=== PATIENT | female | born 1940 | race Caucasian/White ===

== ENCOUNTER 2017-11-04 16:00 | Inpatient (IN) | payer MEDICARE, OTHER ==
[~2017-11-04] VITALS: Ht 149.9 cm; Wt 65.5 kg
[2017-11-04] MEDS ORDERED: GABA-586 PO (16:56)
[2017-11-04] MEDS ORDERED: ESTR30CR VG (16:56)
[2017-11-04] MEDS ORDERED: MULT1TAB52 PO (16:56)
[2017-11-04] MEDS ORDERED: OMEP20CA9 PO (16:56)
[2017-11-04] MEDS ORDERED: LISI1TAB5 PO (16:56)
[2017-11-04] MEDS ORDERED: IRON45TA3 PO (16:56)
[2017-11-04] MEDS ORDERED: CRESTOR20 MG PO (16:56)
[2017-11-04] MEDS ORDERED: MAGN30TA PO (16:56)
[2017-11-04] MEDS ORDERED: ONDA8TAB12 PO (16:56)
[2017-11-04] MEDS ORDERED: LEVO50TA PO (16:56)
[2017-11-04] MEDS ORDERED: METO-239 PO (16:57)
[2017-11-04] MEDS ORDERED: FERR325T14 PO (17:01)
[2017-11-04] MEDS ORDERED: MAGN400T3 PO (17:01)
[2017-11-04] MEDS ORDERED: ISOS30TA4 PO (17:01)
[2017-11-04] MEDS ORDERED: ASPI-612 PO (17:01)
[2017-11-04] MEDS: IV NORMAL SALINE 1,000ML 1,000 ML IV SCH (18:19)
[2017-11-04 19:31] VITALS: BP 121/61
--- NOTE | 2017-11-04 19:53 | HP ---
ADMIT DATE: 11/04/2017 HISTORY OF PRESENT ILLNESS: The patient is a 76-year-old female patient who was admitted directly from her primary care physician on account of not feeling well for the past week and dizzy, fatigued. She also complained that she has increased urination. She said that she might have a yeast infection and took some Diflucan she had at home. She denied any pain except her chronic back pain and yesterday, she had an opened house and came home and slept for an hour or 2, which is unlike her and she has had extensive investigation done yesterday and it showed that her urinalysis was basically unremarkable. Her white cell count was noted to be high at 13,000 and she was noted to be dehydrated. Her BUN was 41; however, her creatinine is 1.12. She has not been eating or drinking a lot and apparently continued to take her lisinopril and hydrochlorothiazide that might have contributed to her dehydration. PAST MEDICAL HISTORY: Her past medical history is significant for hypertension, hyperlipidemia, hypothyroidism, osteoarthritis and degenerative disk disease and chronic back pain. PAST SURGICAL HISTORY: Her past surgical history is significant for abdominal hernia repair, carpal tunnel release, bunionectomy of the left side, multiple spinal epidural steroid injections, back surgery x 2, total abdominal hysterectomy, bilateral salpingo-oophorectomy, bilateral cataract extraction, cholecystectomy, spinal nerve stimulator placement twice. She has 2 weight loss surgeries. She has lap band in 2008 that apparently slipped and underwent a gastric sleeve surgery in 2013 and she is now maintaining her weight around 140 pound. ALLERGIES: SHE IS ALLERGIC TO TOPICAL ANTIBIOTIC AND IODINE. THE ANTIBIOTICS INCLUDE BACITRACIN, NEOMYCIN AND POLYMYXIN B. MEDICATIONS: She is currently on following medications: She is on ferrous sulfate 325 mg once a day, Crestor 20 mg at bedtime, isosorbide mononitrate 30 mg she takes half a tablet daily, metoprolol succinate 25 mg she takes half a tablet once a day, lisinopril/hydrochlorothiazide 20/12.5 one tablet once a day, aspirin 81 mg once a day, gabapentin 1200 mg 3 times a day, magnesium oxide 400 mg half a tablet twice a day, ondansetron for Zofran 1 tablet every 8 hours, omeprazole 20 mg twice a day, conjugated estrogen for Premarin 0.5 grams vaginally twice a week. She is on levothyroxine sodium 50 mcg daily, multivitamin 1 tablet once a day. FAMILY HISTORY: Has one brother at the age of 44 because of severe asthmatic attack. Her father at age of 78 and mother at age of 90. SOCIAL HISTORY: She is , has son and a daughter. She does not smoke, drinks alcohol occasionally. She works at [employer] for the last 30 years. REVIEW OF SYSTEMS: She has bilateral cataract extraction, but denied any glaucoma or macular degeneration. Denied any earache, tinnitus or sensorineural deafness. Denied any nosebleeds, stuffy nose or postnasal drip. Denied any sore throat, sore tongue, toothache, hoarseness of voice or difficulty swallowing. She did complain of some nausea, but denied any vomiting. She has tendency to cause constipation. Denied any diarrhea, denied any hematemesis, melena or hematochezia. Denied any dysuria, frequency or hematuria. Denied any chest pain, shortness of breath, orthopnea or paroxysmal nocturnal dyspnea. Denied any cough, phlegm or hemoptysis. Denied any chills, rigors, or fever. Denied any dizziness, lightheadedness, or vertigo. PHYSICAL EXAMINATION: GENERAL: On examining her, she looked well and was clearly in no apparent respiratory distress, slightly pale, but no jaundice or cyanosis. No lymphadenopathy, no thyromegaly. No jugular venous distension. No lower limb edema. VITAL SIGNS: Her heart rate was 62, blood pressure was 131/65. Her respiratory rate was 18 and oxygen saturation was 95% on room air. HEAD: She weighs 143.6 pounds. HEAD, EYES, EARS, NOSE AND THROAT: Showed normocephalic, atraumatic. NECK: Supple. HEART: Showed normal first and second sounds. No gallop, rub or murmur. CHEST: Clear to auscultation. No crepitation or rhonchi. ABDOMEN: Distended, soft, nontender. No guarding or rigidity. No organomegaly. Hernial orifice is intact. Bowel sounds are normal. NEUROLOGIC: She was awake, alert, responding appropriately. All cranial nerves are intact. She moves extremities without difficulty. She ambulates without assistance or assistive devices. LABORATORY DATA: While at her primary care physician's office, she has had lab work done including urinalysis, which showed the urine was yellow, clear with a specific gravity 1.030. The urine was negative for leukocyte, nitrites, pH was 5. There was trace of albumin, negative for glucose, trace ketones, and negative for blood. Her serum iron was 179, total iron binding capacity was 305, and percent saturation was 59. Her serum B12 was 687 picogram/mL. Her TSH was normal at 1.57. Her white cell count was 13,000 with hemoglobin of 15.8, hematocrit 47.7. Her MCV was 90 and platelet count 228,000 with manual differential shows 73% polymorphs, 16% lymphocytes, 7% monocytes, and 2% eosinophils. Her 25-hydroxy vitamin D was 41 nanogram/mL, the normal range is between 30-100. Her total cholesterol 181, LDL cholesterol was 93, triglycerides were 109, HDL cholesterol was 66, and VLDL cholesterol was 22. Her serum sodium was 140, potassium 4.3, chloride 99, bicarbonate was 29. Her serum calcium was 7.4. Total bilirubin, AST, ALT, alkaline phosphatase were normal. Total protein was 6.6, albumin 4.4 and, BUN was 40, creatinine was 1.12 and the blood glucose was 115 mg/dL. Her estimated GFR was 47 mL per minute. Her free T4 was 1.54 nanogram/dL. ASSESSMENT: So, in summary, this is a 76-year-old female patient who came with very nonspecific complaint of generalized weakness down it to outstanding numbers are leukocytosis 13,000 and her BUN is disproportionately high compared to creatinine. Although she is already on hydrochlorothiazide together with obviously poor intake that might have contributed to that, but all other lab works seemed to be within acceptable range. PLAN: My plan is to arrange for her to have 2 sets of blood culture. We will start her on IV fluid and we will check her sed rate, CRP, and C-reactive protein. I would do a chest x-ray and given that she has chronic back pain and she gets spinal epidural steroid injection on a regular basis, I will also arrange for her to have a total of body bone scan and decide the further management accordingly. CAROLINE DELEON MD DR: VIRAL/jaylen JOB#: [id number] / [id number]
[2017-11-04] MEDS ORDERED: ATORVASTATIN CALCIUM 20 MG TABLET PO SCH (21:00)
[2017-11-04] MEDS: GABAPENTIN 300 MG CAPSULE. PO SCH (21:49)
[2017-11-04] MEDS: MAGNESIUM OXIDE 400 MG TABLET PO SCH (21:49)
[2017-11-04] MEDS: ONDANSETRON ODT 4 MG TAB.RAPDIS PO SCH (22:00)
[2017-11-04 22:47] VITALS: BP 118/53
[2017-11-05] MEDS: IV NORMAL SALINE 1,000ML 1,000 ML IV SCH (03:30)
[2017-11-05 05:41] VITALS: BP 130/56
[2017-11-05] MEDS: ONDANSETRON ODT 4 MG TAB.RAPDIS PO SCH ×2 (06:00→13:52)
[2017-11-05 06:52] LABS: ALBUMIN/GLOBULIN RATIO 1.2 (1.0-1.7); CALCIUM 8.7 mg/dL (8.5-10.1); GFR 53.8; POTASSIUM 4.6 mmol/L (3.5-5.1); TOTAL BILIRUBIN 0.4 mg/dL (0.2-1.0); TOTAL PROTEIN 5.6 g/dL (6.4-8.2)
[2017-11-05 06:53] LABS: HEMATOCRIT 42.1 % (36.0-47.0); HEMOGLOBIN 14.1 g/dL (12.0-15.5); RED BLOOD COUNT 4.57 x10^6/uL (3.50-5.40); RED CELL DISTRIBUTION WIDTH 14.6 % (11.5-14.5); WHITE BLOOD COUNT 8.5 x10^3/uL (4.0-11.0)
[2017-11-05] MEDS ORDERED: LEVOTHYROXINE 50 MCG TABLET PO SCH (07:30)
[2017-11-05] MEDS ORDERED: PANTOPRAZOLE 40 MG TABLET. PO SCH (09:00)
[2017-11-05] MEDS ORDERED: LISINOPRIL 20 MG TABLET PO SCH (09:00)
[2017-11-05] MEDS ORDERED: METOPROLOL SUCC 24HR ER 25 MG TAB.ER.24H. PO SCH (09:00)
[2017-11-05] MEDS ORDERED: FERROUS SULFATE 325 MG TABLET. PO SCH (09:00)
[2017-11-05] MEDS: ASPIRIN ENTERIC COATED 81 MG TABLET.DR. PO SCH ×2 (09:00→09:28)
[2017-11-05] MEDS ORDERED: hydroCHLOROthiazide 12.5 MG CAPSULE PO SCH (09:00)
[2017-11-05] MEDS ORDERED: ISOSORBIDE MONONITRATE ER 30 MG TAB.ER.24H PO SCH ×2 (09:00→21:00)
[2017-11-05] MEDS ORDERED: MULTIVITAMIN with MINERAL TABLET. PO SCH (09:00)
[2017-11-05] MEDS: MAGNESIUM OXIDE 400 MG TABLET PO SCH (09:31)
[2017-11-05] MEDS: GABAPENTIN 300 MG CAPSULE. PO SCH ×2 (09:33→13:52)
[2017-11-05 10:40] VITALS: BP 153/77
--- NOTE | 2017-11-05 14:57 | RAD ---
Chest, 2 views, 11/05/2017: HISTORY: Leukocytosis The heart size and pulmonary vascularity are normal. There is minimal linear atelectasis or scarring in the left base. No pulmonary consolidation is seen. There is no evidence of pleural fluid. Spinal stimulator leads extend into the lower thoracic spinal canal. There is a mild thoracolumbar scoliosis. There are mild to moderate scattered degenerative changes. IMPRESSION: Mild left basilar linear atelectasis or scarring. Electronically signed by: Geoffrey Ortega MD (11/05/2017 2:54 PM) [facility]
[2017-11-05 14:59] VITALS: BP 136/74
--- NOTE | 2017-11-05 15:16 | RAD ---
Radionuclide bone scan, 11/05/2017: HISTORY: Back pain, leukocytosis Whole-body imaging was performed following IV injection of 26.8 mCi of technetium 99m MDP. No previous bone scan is available at this time for comparison purposes. The following findings are delineated: 1. There is a mild thoracolumbar scoliosis. There are several foci of mildly increased activity in the spine, particularly near the thoracolumbar junction level. These findings are likely on an arthritic basis. 2. Mildly increased activity medially at the left knee and at the left mid foot level are probably on an arthritic or traumatic basis. 3. Mildly increased activity at both wrists and shoulders is likely arthritic in nature. 4. Increased activity is a right elbow is probably related to the injection site. 5. Activity of the radionuclide about the skeleton and major joints is otherwise unremarkable. 6. Normal activity is present in both kidneys and the bladder. IMPRESSION: 1. Mild scattered arthritic changes. 2. Mildly increased activity at several levels in the spine is also probably on an arthritic basis. Electronically signed by: Geoffrey Ortega MD (11/05/2017 3:13 PM) [facility]
[2017-11-05] MEDS ORDERED: ASPIRIN ENTERIC COATED 81 MG TABLET.DR. PO SCH (21:00)
--- NOTE | 2017-11-05 21:32 | DS ---
DATE OF DISCHARGE: 11/05/2017 HOSPITAL COURSE: The patient is a 76-year-old female patient who was admitted directly from her primary care physician for vague complaints of generalized weakness. She has extensive lab work done there, which showed only two abnormalities, her white cell count was slightly elevated at 13,000. She was also slightly dehydrated with a disproportionately high BUN 41 with a creatinine of 1.1. However, she was also on hydrochlorothiazide and her intake was poor over the last week or so. We have had more lab work done here basically looking for any abnormality and therefore, I did check her sedimentation rate and C-reactive protein as well as lactic acid. I repeated her labs and also did bone scan. She is receiving spinal epidural steroid injection every 2 months. She continued to have low back pain and basically, all her labs are within normal range. She remained stable hemodynamically afebrile. Her white cell count if anything has improved down to 8500. Her sedimentation rate was 1 and C-reactive protein was only 0.5 mg/dL. Her lactic acid was only 0.8 and her bone scan showed that there is mild scattered arthritic changes mildly increased activity at several levels in the spine is also probably on an arthritic basis. Given that her inflammatory markers are normal, her white cell count is normal. She has remained stable. A decision was made to discharge her home to follow with her primary care physician. PHYSICAL EXAMINATION: GENERAL: On examining her this afternoon, she looked well and was clearly in no apparent respiratory distress, pale, but no jaundice, cyanosis, or thyromegaly. No jugular venous distension. No limb edema. VITAL SIGNS: Her heart rate was 55, blood pressure 156/74, temperature was 98.6, respiratory rate was 18, and oxygen saturation was 97%. HEAD, EYES, EARS, NOSE AND THROAT: Showed normocephalic, atraumatic. NECK: Supple. HEART: Showed normal first and second heart sounds. No gallop, rub or murmur. CHEST: Clear to auscultation. No crepitation or rhonchi. ABDOMEN: Distended, soft, and nontender. NEUROLOGIC: She is awake, alert, responding appropriately. Cranial nerves intact. EXTREMITIES: She moves extremities without difficulty. She ambulates without assistance or assistive devices. Her intake was 850, no output was recorded. Her lab work this morning showed a serum sodium of 42, potassium 4.6, chloride 109, bicarbonate 30, anion gap of 3, BUN 35 down from 41 and creatinine is down to 1 from 1.12. Her estimated GFR was 54 mL per minute. Her glucose was 84, calcium was 8.7. Total bilirubin, AST, ALT, alkaline phosphatase were normal. Total protein was 5.6, albumin was 3. Her CK was 165 and C-reactive protein was 0.5. White cell count was 8500, hemoglobin 14, hematocrit 42, MCV 92, and platelet count of 159,000, with a sedimentation rate of only 1 mm per hour. DISCHARGE MEDICATIONS: The patient was discharged home to continue on all her medication including aspirin 81 mg once a day, conjugated estrogens from Premarin 30 g, half a gram vaginally twice weekly, ferrous sulfate 325 mg daily, gabapentin 300 mg 3 times a day, isosorbide mononitrate 30 mg, she takes half a tablet daily, levothyroxine sodium for Synthroid 50 mcg once a day. She is on lisinopril/hydrochlorothiazide 20/12.5 mg 1 tablet once a day, magnesium oxide 400 mg half a tablet twice a day, metoprolol succinate 25 mg half a tablet once a day, multivitamin 1 tablet daily, omeprazole 20 mg twice a day, ondansetron 80 mg every 8 hours, and Crestor 20 mg at bedtime. FINAL DISCHARGE DIAGNOSES: Generalized weakness, aches and pains, probably due to some viral infection that is resolving. She has multiple medical problems including hypertension, hypothyroidism, and hyperlipidemia. CAROLINE DELEON MD DR: VIRAL/jaylen JOB#: [id number] / [id number]
[2017-11-11] MEDS ORDERED: ESTROGENS, CONJ VAGINAL CREAM 30GM TUBE. VG SCH (09:00)
== END 2017-11-05 15:49 | disposition home or self-care (01) | DRG 866 ==
LOC: 1 SOUTH 16:17
PROVIDERS: ADMIT Internal Medicine; ATTEND Internal Medicine
DX: B34.9 Viral infection, unspecified (principal); E86.0 Dehydration; D72.829 Elevated white blood cell count, unspecified; E03.9 Hypothyroidism, unspecified; G89.29 Other chronic pain; I10 Essential (primary) hypertension; E78.5 Hyperlipidemia, unspecified; M19.90 Unspecified osteoarthritis, unspecified site; Z88.8 Allergy status to other drugs, medicaments and biological substances; Z82.5 Family history of asthma and other chronic lower respiratory diseases; Z90.710 Acquired absence of both cervix and uterus; Z98.41 Cataract extraction status, right eye; Z98.42 Cataract extraction status, left eye; Z98.84 Bariatric surgery status; Z90.722 Acquired absence of ovaries, bilateral; Z90.49 Acquired absence of other specified parts of digestive tract
CPT/HCPCS: 36415; 71046; 78306; 80053; 82550; 83605; 85027; 85651; 86140; 87040; A9503; J7030

== ENCOUNTER → 2018-12-04 | Outpatient (CLI) | payer MEDICARE, OTHER ==
[~2018-12-04] MED LIST: ASPI-612 PO; CRESTOR20 MG PO; ESTR30CR VG; FERR325T14 PO; GABA-586 PO; IRON45TA3 PO; ISOS30TA4 PO; LEVO50TA PO; LISI1TAB5 PO; MAGN30TA PO; MAGN400T3 PO; METO-239 PO; MULT1TAB52 PO; OMEP20CA9 PO; ONDA8TAB12 PO
--- NOTE | 2018-12-04 11:17 | RAD ---
Chest, 2 views, 12/04/2018: HISTORY: Cough Comparison is made to a study from 11/05/2017. Spinal stimulator leads remain in place extending into the lower thoracic spinal canal. The heart size and pulmonary vascularity are normal. There are unchanged mild streaky left basilar opacities compatible with scarring versus atelectasis. The right lung is clear. No pleural fluid is evident. There is a mild thoracolumbar scoliosis with mild scattered degenerative changes. IMPRESSION: 1. Mild left basilar linear scarring or atelectasis. 2. No significant change since 11/05/2017. Electronically signed by: Geoffrey Ortega MD (12/04/2018 11:14 AM) [facility] [place]
== END | disposition home or self-care (01) ==
LOC: PMG 09:09
PROVIDERS: ATTEND Physician Assistant Medical
DX: R05 Cough (principal); M41.85 Other forms of scoliosis, thoracolumbar region; M47.815 Spondylosis without myelopathy or radiculopathy, thoracolumbar region
CPT/HCPCS: 71046

== ENCOUNTER → 2019-12-20 | Outpatient (CLI) | payer MEDICARE, OTHER ==
[~2019-12-20] MED LIST changes: +LISI1TAB19 PO; -LISI1TAB5 PO; -MAGN400T3 PO; +MAGN400T5 PO; +MULT-445 PO; -MULT1TAB52 PO; +OMEP20CA16 PO; -OMEP20CA9 PO
--- NOTE | 2019-12-20 08:39 | RAD ---
FOOT LEFT 2V, ANKLE LEFT 2V 12/20/2019 8:13 AM INDICATION: Foot and ankle injury one week ago COMPARISON: Left calcaneus radiograph 08/06/2013. TECHNIQUE: 2 views of the left foot and 2 views the left ankle are provided. FINDINGS/ IMPRESSION: 1. Single screw is identified transfixing the neck of the first metatarsal with suggestion of remote osteotomy or fracture. No significant hallux valgus deformity is visualized, possibly treated. Bone mineralization is within normal limits. No acute fracture. 2. Subtle cortical irregularity is identified along the tip of the medial malleolus which could represent a avulsion fracture. Mild diffuse soft tissue swelling predominantly along the lateral aspect of the ankle is noted. Tibial plafond and talar dome are intact. Ankle mortise is congruent. Fibula is intact. Electronically signed by: Lakeisha Miguel MD (12/20/2019 8:36 AM) [facility]
== END ==
LOC: DXRAD 08:04
PROVIDERS: ATTEND Physician Assistant Medical
DX: M25.472 Effusion, left ankle (principal)
CPT/HCPCS: 73600; 73620

== ENCOUNTER → 2020-01-17 | Outpatient (CLI) | payer MEDICARE, OTHER ==
--- NOTE | 2020-01-17 17:31 | RAD ---
Left ankle 3 views, left foot 3 views. HISTORY: History of fracture Left foot 3 views were taken of the left foot. The patient had a previous healed right metatarsal osteotomy. There is callus about the heads of the third and fourth metatarsals consistent with healing fractures. Fractures are nondisplaced. Left ankle 3 views were taken of the left ankle. An acute fracture is not identified. There is no acute osseous abnormality or evidence of a healing fracture. IMPRESSION: 1. No acute osseous abnormality noted in the left ankle. 2. Healing fractures at the head of the third and fourth metatarsals. Electronically signed by: Harvey Toscano MD (01/17/2020 5:28 PM) [id number]
== END | disposition home or self-care (01) ==
LOC: RAD 10:09
PROVIDERS: ATTEND Physician Assistant Medical
DX: S92.332D Displaced fracture of third metatarsal bone, left foot, subsequent encounter for fracture with routine healing (principal); S92.342D Displaced fracture of fourth metatarsal bone, left foot, subsequent encounter for fracture with routine healing; X58.XXXD Exposure to other specified factors, subsequent encounter
CPT/HCPCS: 73610; 73630

== ENCOUNTER → 2020-03-21 | Outpatient (CLI) | payer MEDICARE, OTHER ==
[~2020-03-21] MED LIST changes: -ASPI-612 PO; +ASPI-889 PO; -LISI1TAB19 PO; +LISI1TAB37 PO
--- NOTE | 2020-03-21 13:41 | RAD ---
Bone densitometry. Clinical history: 79-year-old postmenopausal female with osteopenia. Lumbar spine: L1-L4. The technical acquisition is adequate. The bone mineral density across the aggregate of L1-L4 is 1.278 gm/cm2. This corresponds to a T-score of 0.8 which is consistent with normal bone mineral density. At this bone density level, fracture risk is normal. Hip: Right femur. The technical acquisition is adequate. The bone mineral density at the the right femoral neck is 0.700 gm/cm2. This corresponds to a T-score of -2.4 which is consistent with low bone mineral density. At this bone density level, fracture risk is increased. Impression: 1. Decrease bone mineral density of the right hip. Note: Definitions established by the World Health Organization: 1. Normal: T-score is -1.0 or above. 2. Osteopenia: T-score is between -1.0 and -2.5. 3. Osteoporosis: T-score is -2.5 or below. Electronically signed by: Manny Cartwright MD (03/21/2020 1:38 PM) [id number]
== END | disposition home or self-care (01) ==
LOC: DXRAD 13:04
PROVIDERS: ATTEND Physician Assistant Medical
DX: M81.0 Age-related osteoporosis without current pathological fracture (principal); M85.80 Other specified disorders of bone density and structure, unspecified site
CPT/HCPCS: 77080

== ENCOUNTER → 2020-04-11 | Outpatient (CLI) | payer MEDICARE, OTHER ==
--- NOTE | 2020-04-11 13:25 | RAD ---
CT Abdomen and Pelvis without contrast History: Long intermittent battles of nausea Technique: Noncontrast CT imaging was performed of the abdomen and pelvis. Multiplanar images are reviewed. Exposure: One or more of the following individualized dose reduction techniques were utilized for this examination: 1. Automated exposure control 2. Adjustment of the mA and/or kV according to patient size 3. Use of iterative reconstruction technique. Comparison: None Findings: There is some linear atelectasis or fibrotic change of the bilateral lung bases. There is mild distention of the limited visualized distal esophagus. There is small sliding hiatal hernia. There are postsurgical changes of stomach. Accurate evaluation of bowel is limited without oral contrast. There is prominent retained stool greatest of the ascending and transverse colon. Small bowel is not significantly dilated. There is no free fluid or free air. Appendix is not confidently identified. Present.Accurate evaluation of abdominal visceral organs is limited without intravenous contrast. There is no obvious abnormality of the spleen, liver, or pancreas. There is no hydronephrosis or renal calculus. There is mild plaque of the abdominal aorta and iliac arteries. There is a small 0.7 cm left adrenal nodule, density measurements about 23 Hounsfield units. There is multilevel thoracolumbar degenerative disc disease. There is multilevel lumbar facet degenerative change, grade 1 anterior spondylolisthesis L4-5. There is mild dextro scoliosis centered near L1. There is mild right lateral subluxation of L2 relative L3 and L1 relative to L2. There is small focus of nonspecific sclerosis of the left iliac bone. Impression: 1. There are postsurgical changes of the stomach. There is some distention of the visualized distal esophagus and small hiatal hernia. 2. There is no significant inflammatory type change about the bowel. There is more prominent retained stool in the ascending and transverse colon. 3. There is small nonspecific left adrenal nodule. Electronically signed by: Bernardo Justice MD (04/11/2020 1:22 PM) [facility]
== END | disposition home or self-care (01) ==
LOC: CT 09:48
PROVIDERS: ATTEND Physician Assistant Medical
DX: K44.9 Diaphragmatic hernia without obstruction or gangrene (principal); K63.89 Other specified diseases of intestine; I70.0 Atherosclerosis of aorta; S33.120A Subluxation of L2/L3 lumbar vertebra, initial encounter; M41.86 Other forms of scoliosis, lumbar region; X58.XXXA Exposure to other specified factors, initial encounter; Y93.89 Activity, other specified; Y92.89 Other specified places as the place of occurrence of the external cause; Y99.8 Other external cause status
CPT/HCPCS: 74176

== ENCOUNTER → 2020-04-28 | Outpatient (CLI) | payer MEDICARE, OTHER ==
--- NOTE | 2020-04-28 13:18 | RAD ---
Gastric Emptying Study Indication: Chronic nausea. Procedure: Anterior and posterior projection static images are obtained over the stomach following oral administration of 2 mCi of 99 M technetium sulfur colloid in a solid meal. Time points include an immediate baseline, and 1, 2, 3, and 4 hours post ingestion. Findings: There is progressive emptying of the stomach on sequential images. Percentage retention at one hour is 87% (normal 34.8-91%). Two hours 63% (normal 2.7-60%). Three hours 43% (normal 0.5-28%). Four hours 19% (normal 0-10%). The calculated T1/2 of emptying is 154 minutes. 45-90 minutes is considered normal. IMPRESSION: Moderately delayed gastric emptying. Electronically signed by: Javier Iverson MD (04/28/2020 1:15 PM) [id number]
== END ==
LOC: NM 07:30
PROVIDERS: ATTEND Internal Medicine Gastroenterology
DX: R11.0 Nausea (principal)
CPT/HCPCS: 78264; A9541

== ENCOUNTER 2020-09-24 17:08 | Emergency (ER) | payer MEDICARE, OTHER ==
[~2020-09-24] VITALS: Ht 149.9 cm; Wt 81.8 kg
[~2020-09-24 17:08] MED LIST changes: -ISOS30TA4 PO; +ISOS30TA68 PO
[2020-09-24 17:45] VITALS: BP 160/85
--- NOTE | 2020-09-24 17:59 | RAD ---
XR EXAM OF ANKLE_LEFT 3V, XR FOOT_LEFT 3 VIEWS History: Reason: Fall, LEFT LATERAL ANKLE/foot PAIN, swelling / Spl. Instructions: / History: Technique: 3 views left ankle and 3 views left foot. Comparison: None. Findings: Left ankle: Normal alignment. Symmetric ankle mortise. No fracture. Ankle soft tissue swelling. Left foot: Postoperative changes first metatarsal. Regularity of the third and fourth metatarsal neck s. Impression: 1. Irregularity of the third and fourth metatarsal necks, may relate to prior trauma. Recommend augustina elation with point tenderness to evaluate acuity. Electronically signed by: Riley King DO (09/24/2020 5:56 PM) [facility]
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
== END 2020-09-24 18:50 | disposition home or self-care (01) ==
LOC: ER 17:08
DX: S93.602A Unspecified sprain of left foot, initial encounter (principal); S93.601A Unspecified sprain of right foot, initial encounter; K21.9 Gastro-esophageal reflux disease without esophagitis; E78.00 Pure hypercholesterolemia, unspecified; I10 Essential (primary) hypertension; E03.9 Hypothyroidism, unspecified; Z88.1 Allergy status to other antibiotic agents; Z88.8 Allergy status to other drugs, medicaments and biological substances; W01.0XXA Fall on same level from slipping, tripping and stumbling without subsequent striking against object, initial encounter; Y93.89 Activity, other specified; Y92.89 Other specified places as the place of occurrence of the external cause; Y99.8 Other external cause status
CPT/HCPCS: 73610; 73630; 99284

== ENCOUNTER 2020-12-16 21:31 | Emergency (ER) | payer MEDICARE, OTHER ==
[~2020-12-16] VITALS: Ht 149.9 cm; Wt 81.8 kg
[2020-12-16 21:47] VITALS: BP 161/74
--- NOTE | 2020-12-16 22:04 | PHYS DOC ---
Past History Past Medical History: GERD, High Cholesterol, Hypertension, Hypothyroid, Other Additional Past Medical Histor: gastroporesis Past Surgical History: Cholecystectomy, Hysterectomy Alcohol Use: None Adult General Chief Complaint Chief Complaint: HYPERTENSION HPI HPI Patient is an 80-year-old female with a past medical history significant for hypertension, hypercholesterolemia and hyperthyroidism who presents with a chief complaint of hypertension. States that her primary care physician just upped her dose on lisinopril and she bought a brand-new blood pressure machine at [employer] a couple days ago. States that she took it today and her blood pressure at home was 170/150 which did not seem right to her. States she decided to come into the emergency department to make sure it was not too high. Denies any headaches, changes in vision, neck pain, chest pain, shortness of breath, abdominal pain, nausea, vomiting, dysuria, hematuria, blood in the stool or diarrhea. Denies any recent traumas, travels, fevers. Denies any numbness/weakness/tingling. Denies any trouble sitting, standing or walking. States she feels absolutely fine but just want to get her blood pressure checked. Review of Systems Review of Systems Review of systems otherwise unremarkable except noted in HPI Allergies Allergies Allergies Coded Allergies Type Severity Reaction Last Updated Verified bacitracin Allergy Intermediate 11/05/17 Yes iodine Allergy Intermediate 11/05/17 Yes neomycin Allergy Intermediate 11/05/17 Yes polymyxin B Allergy Intermediate 11/05/17 Yes Physical Exam Physical Exam Constitutional: Well developed, well nourished, no acute distress, non-toxic appearance. [] HENT: Normocephalic, atraumatic, bilateral external ears normal, oropharynx moist, no oral exudates, nose normal. [] Eyes: PERRLA, EOMI, conjunctiva normal, no discharge. [] Neck: Normal range of motion, no tenderness, supple, no stridor. [] Cardiovascular:Heart rate regular rhythm, no murmur [] Lungs & Thorax: Bilateral breath sounds clear to auscultation [] Abdomen: soft, no tenderness, no masses, no pulsatile masses. [] Skin: Warm, dry, no erythema, no rash. [] Back: No tenderness, no CVA tenderness. [] Extremities: No tenderness, no cyanosis, no clubbing, ROM intact, no edema. [] Neurologic: Alert and oriented X 3, normal motor function, normal sensory function, cranial nerves intact, able to sit, stand and walk without issue, no focal deficits noted. [] Psychologic: Affect normal, judgement normal, mood normal. [] Current Patient Data Vital Signs Vital Signs Date Time Temp Pulse Resp B/P (MAP) Pulse Ox O2 Delivery O2 Flow Rate FiO2 12/16/20 21:47 98.3 72 18 161/74 (103) 95 Room Air EKG EKG EKG with a rate of 58, QRS of 92, QTc of 414, no STEMI [] Radiology/Procedures Radiology/Procedures [] Heart Score C/O Chest Pain: No Risk Factors: Risk Factors: DM, Current or recent (<one month) smoker, HTN, HLP, family history of CAD, obesity. Risk Scores: Risk Factors: DM, Current or recent (<one month) smoker, HTN, HLP, family history of CAD, obesity. Course & Med Decision Making Course & Med Decision Making Patient is an 80-year-old female with a history of hypertension who presents with a chief complaint of hypertension on her new blood pressure machine Vital signs notable for hypertension with a systolic of 161 and diastolic of 74. Patient otherwise completely asymptomatic. EKG noted above and normal. Discussed all findings with patient and appropriate technique for taking blood pressure at home. Discussed the possibility of her new blood pressure machine either being broken or added calibration and being sure to be gentle with these as they get out of calibration easily. Recommended purchasing another 1 and returning this 1. Advised to call primary care physician first thing Friday morning to update on ED visit and set up a follow-up as soon as she can. Gave strict return precautions to the emergency department. Family grateful, verbalized understanding and agreed with plan of discharge. [] Dragon Disclaimer Dragon Disclaimer This electronic medical record was generated, in whole or in part, using a voice recognition dictation system. Departure Departure: Impression: Primary Impression: Hypertension Disposition: HOME / SELF CARE / HOMELESS Condition: GOOD Referrals: ROSANNA NUÑEZ (PCP) Patient Instructions: Hypertension Additional Instructions: Thank you for coming into the emergency department today and allowing us to take care of you. Your blood pressure was a little high in the emergency department today with numbers of 161/74 which is a little higher on the top. The EKG of your heart was normal. You are otherwise asymptomatic and looks well. As discussed I would probably return the new blood pressure machine to [facility] and purchase a new one and be careful handling it as they can become on martita brated as discussed. Please take your blood pressure in the morning as discussed. Please take all your blood pressure medicines as prescribed by your primary care physician. Please call your primary care physician first thing Friday morning to update on your ED visit and set up a follow-up as soon as you can. Please come back to the emergency department immediately with new or concerning symptoms as discussed. TEODORO MADDOX MD Dec 16, 2020 22:03
--- NOTE | 2020-12-17 02:45 | EKG ---
[address] [address] Test Date: 2020-12-16 Test Time: 21:56:50 Pat Name: KARLA FORDE Department: Room: Gender: F Greige Mender: IFEOMA : 1940 Requested By: TEODORO MADDOX Order Number: [id number] Reading MD: Measurements Intervals [place] Rate: 58 P: 44 AR: 150 QRS: -1 QRSD: 92 T: -2 QT: 418 QTc: 414 Interpretive Statements SINUS RHYTHM LEFTWARD AXIS T ABNORMALITY IN ANTEROLATERAL LEADS ABNORMAL ECG RI6.02 No previous ECG available for comparison
== END 2020-12-16 22:08 | disposition home or self-care (01) ==
LOC: ER 21:31
DX: I10 Essential (primary) hypertension (principal); K21.9 Gastro-esophageal reflux disease without esophagitis; E78.5 Hyperlipidemia, unspecified; Z90.49 Acquired absence of other specified parts of digestive tract; Z90.710 Acquired absence of both cervix and uterus; Z88.6 Allergy status to analgesic agent; Z88.8 Allergy status to other drugs, medicaments and biological substances
CPT/HCPCS: 93005; 99283-25

== ENCOUNTER → 2021-01-23 | Outpatient (CLI) | payer MEDICARE, OTHER ==
[~2021-01-23] MED LIST changes: +IOHEXOL 240 MG/ML 50ML VIAL. ONE; +IOHEXOL 300 MG/ML 75 ML VIAL. IV ONE
[2021-01-23 08:17] LABS: GFR 53.2
--- NOTE | 2021-01-23 09:07 | RAD ---
Examination: CT of the abdomen pelvis with oral and IV contrast HISTORY: History of nausea, diarrhea COMPARISON: 04/11/2020 TECHNIQUE: Axial CT images of the abdomen pelvis were performed with IV contrast. Coronal and sagitta l reformats are performed Exposure: One or more of the following individualized dose reduction techniques were utilized for thi s examination: 1. Automated exposure control 2. Adjustment of the mA and/or kV according to patient size 3. Use of iterative reconstruction technique FINDINGS: Limited airspace opacities identified in the left lingula and bibasilar lungs likely atelectasis or i nfiltrates. Moderate-sized hiatal hernia. No evidence of free air identified in the abdomen. The liver, spleen, pancreas grossly appears unrema rkable. Cholecystectomy changes. The stomach is mildly distended. Mild fluid distended small bowel lo ops in the right lower quadrant of the abdomen. The appendix is not visualized. Feces and gas noted i n the colon. Bilateral kidneys enhance symmetrically. Moderate degenerative changes lumbar spine. IMPRESSION: 1. Mild fluid distended small bowel loops in the right lower quadrant of the abdomen, nonspecific, c ould be mild enteritis. 2. Limited airspace opacities identified in the left lingula and bibasilar lungs likely atelectasis or infiltrates. 3. Moderate hiatal hernia. Electronically signed by: Arik Stout MD (01/23/2021 9:05 AM) [id number]
== END ==
LOC: CT 07:29
PROVIDERS: ATTEND Internal Medicine Gastroenterology
DX: K44.9 Diaphragmatic hernia without obstruction or gangrene (principal); K31.89 Other diseases of stomach and duodenum; R19.5 Other fecal abnormalities; R10.9 Unspecified abdominal pain; R11.0 Nausea
CPT/HCPCS: 36415; 74177; 82565; 84520; Q9967

== ENCOUNTER 2021-08-19 19:02 | Emergency (ER) | payer MEDICARE, OTHER ==
[~2021-08-19] VITALS: Ht 149.9 cm; Wt 81.8 kg
[~2021-08-19 19:02] MED LIST changes: -IOHEXOL 240 MG/ML 50ML VIAL. ONE; -IOHEXOL 300 MG/ML 75 ML VIAL. IV ONE; +MAGN400T48 PO; -MAGN400T5 PO
[2021-08-19] MEDS ORDERED: ONDANSETRON PF 4 MG/2 ML VIAL. ONE (19:39)
--- NOTE | 2021-08-19 20:24 | RAD ---
Exam: Chest one view INDICATION: Altered mental status TECHNIQUE: Frontal view of the chest Comparisons: 12/04/2018 FINDINGS: The cardiomediastinal silhouette and pulmonary vessels are within normal limits. The lung and pleural spaces are clear. IMPRESSION: No acute cardiopulmonary process. Electronically signed by: Antonino Metz MD (08/19/2021 8:21 PM) JAQUELINE
[2021-08-19 20:25] LABS: BASO # 0.1 x10^3/uL (0.0-0.2); BASO % 1 % (0-3); EOS # 0.1 x10^3/uL (0.0-0.7); EOS % 1 % (0-3); HEMATOCRIT 49.6 % (36.0-47.0); HEMOGLOBIN 16.7 g/dL (12.0-15.5); LYMPH # 1.6 x10^3/uL (1.0-4.8); LYMPH % 16 % (24-48); MEAN CORPUSCULAR HEMOGLOBIN 32 pg (25-35); MEAN CORPUSCULAR HGB CONC 34 g/dL (31-37); MEAN CORPUSCULAR VOLUME 94 fL (79-100); MONO # 1.1 x10^3/uL (0.0-1.1); MONO % 11 % (0-9); NEUT # 7.2 x10^3uL (1.8-7.7); NEUT % 72 % (31-73); PLATELET COUNT 203 x10^3/uL (140-400); RED CELL DISTRIBUTION WIDTH 15.2 % (11.5-14.5)
[2021-08-19 20:35] LABS: GFR 53.2; POTASSIUM 3.4 mmol/L (3.5-5.1)
--- NOTE | 2021-08-19 20:39 | PHYS DOC ---
Past History Past Medical History: GERD, High Cholesterol, Hypertension, Hypothyroid, Other Additional Past Medical Histor: gastroporesis (ORLIN ALICEA APRN) Past Surgical History: Cholecystectomy, Hysterectomy (ORLIN ALICEA APRN) Alcohol Use: None (ORLIN ALICEA APRN) General Adult EDM: Chief Complaint: WEAKNESS/GENERALIZED HPI: HPI: Patient is a 80-year-old female who presents with altered mental status. Family states that she has been acting confused all day. Patient also reports nausea and vomiting. Denies recent illness. Denies fever or cough. No chest pain or shortness of breath. Denies pain. Patient's been vaccinated for COVID-19 x2. History of hypertension, hypothyroidism, GERD. (ORLIN ALICEA APRN) Review of Systems: Review of Systems: ROS At least 10 ROS systems have been reviewed and are negative except as documented in the HPI. General: Negative except as outlined in HPI above. Skin: Negative except as outlined in HPI above. HEENT: Negative except as outlined in HPI above. Neck: Negative except as outlined in HPI above. Respiratory: Negative except as outlined in HPI above.. Cardiovascular: Negative except as outlined in HPI above. Abdomen: Negative except as outlined in HPI above. : Negative except as outlined in HPI above. Back/MSK: Negative except as outlined in HPI above. Neuro: Negative except as outlined in HPI above. Psych: Negative except as outlined in HPI above. (ORLIN ALICEA APRN) Current Medications: Current Meds: Current Medications Medications (Trade) Dose Ordered Sig/Christine Start Time Stop Time Status Last Admin Dose Admin Ondansetron HCl (Zofran) 4 mg STK-MED ONCE 08/19/21 19:39 08/19/21 19:39 DC (ORLIN ALICEA APRN) Allergies: Allergies: Allergies Coded Allergies Type Severity Reaction Last Updated Verified bacitracin Allergy Intermediate 11/05/17 Yes neomycin Allergy Intermediate 11/05/17 Yes polymyxin B Allergy Intermediate 11/05/17 Yes povidone-iodine Allergy Unknown 01/19/21 Yes soap Allergy Unknown 01/19/21 Yes (ORLIN ALICEA APRN) Physical Exam: PE: Constitutional: Well developed, well nourished, no acute distress, non-toxic appearance. HENT: bilateral external ears normal, oropharynx moist, no oral exudates, nose normal. Eyes: PERRLA, conjunctiva normal, no discharge. [] Neck: Normal range of motion, no tenderness, supple Cardiovascular:Heart rate regular rhythm, no murmur [] Lungs & Thorax: Bilateral breath sounds clear to auscultation [] Abdomen: Bowel sounds normal, soft, no tenderness, no masses Skin: Warm, dry, no erythema, no rash. [] Back: No tenderness, no CVA tenderness. [] Extremities: No tenderness, no cyanosis, no clubbing, ROM intact, no edema. [] Neurologic: Alert and oriented X 3, normal motor function, normal sensory function, no focal deficits noted. [] Psychologic: Affect normal, judgement normal, mood normal. [] (ORLIN ALICEA APRN) Current Patient Data: Labs: Laboratory Tests Test 08/19/21 19:48 White Blood Count 10.0 x10^3/uL (4.0-11.0) Red Blood Count 5.30 x10^6/uL (3.50-5.40) Hemoglobin 16.7 g/dL (12.0-15.5) H Hematocrit 49.6 % (36.0-47.0) H Mean Corpuscular Volume 94 fL (79-100) Mean Corpuscular Hemoglobin 32 pg (25-35) Mean Corpuscular Hemoglobin Concent 34 g/dL (31-37) Red Cell Distribution Width 15.2 % (11.5-14.5) H Platelet Count 203 x10^3/uL (140-400) Neutrophils (%) (Auto) 72 % (31-73) Lymphocytes (%) (Auto) 16 % (24-48) L Monocytes (%) (Auto) 11 % (0-9) H Eosinophils (%) (Auto) 1 % (0-3) Basophils (%) (Auto) 1 % (0-3) Neutrophils # (Auto) 7.2 x10^3uL (1.8-7.7) Lymphocytes # (Auto) 1.6 x10^3/uL (1.0-4.8) Monocytes # (Auto) 1.1 x10^3/uL (0.0-1.1) Eosinophils # (Auto) 0.1 x10^3/uL (0.0-0.7) Basophils # (Auto) 0.1 x10^3/uL (0.0-0.2) Vital Signs: Vital Signs Date Time Temp Pulse Resp B/P (MAP) Pulse Ox O2 Delivery O2 Flow Rate FiO2 08/19/21 19:26 98.2 77 18 198/107 (137) 100 Room Air (ORLIN ALICEA APRN) EKG: EKG: Irregular rhythm. Heart rate [address] elevation or depression. Interpreted by Dr. Maddox. (ORLIN ALICEA APRN) Radiology/Procedures: Radiology/Procedures: []Exam: Chest one view INDICATION: Altered mental status TECHNIQUE: Frontal view of the chest Comparisons: 12/04/2018 FINDINGS: The cardiomediastinal silhouette and pulmonary vessels are within normal limits. The lung and pleural spaces are clear. IMPRESSION: No acute cardiopulmonary process. Electronically signed by: Antonino Metz MD (08/19/2021 8:21 PM) [facility] Exam: Chest one view INDICATION: Altered mental status TECHNIQUE: Frontal view of the chest Comparisons: 12/04/2018 FINDINGS: The cardiomediastinal silhouette and pulmonary vessels are within normal limits. The lung and pleural spaces are clear. IMPRESSION: No acute cardiopulmonary process. Electronically signed by: Antonino Metz MD (08/19/2021 8:21 PM) [facility] Head W/O Contrast: History: Reason: AMS, weakness / Spl. Instructions: / History: Comparison: none Axial images were obtained without contrast. There is marked diffuse atrophy. There is no mass effect, extraaxial fluid collections or hydrocephalus. There is no focal loss of casper-white matter distinction to suggest acute ischemia, i.e. stroke. Impression: No acute findings. RS Compliance Statement: One or more of the following individualized dose reduction techniques were utilized for this examination: 1. Automated exposure control 2. Adjustment of the mA and/or kV according to patient size 3. Use of iterative reconstruction technique Electronically signed by: Jero Lewis III, MD (08/19/2021 9:00 PM) [facility] (ORLIN ALICEA APRN) Heart Score: C/O Chest Pain: No Risk Factors: Risk Factors: DM, Current or recent (<one month) smoker, HTN, HLP, family history of CAD, obesity. Risk Scores: Score 0 - 3: 2.5% MACE over next 6 weeks - Discharge Home Score 4 - 6: 20.3% MACE over next 6 weeks - Admit for Clinical Observation Score 7 - 10: 72.7% MACE over next 6 weeks - Early Invasive Strategies (ORLIN ALICEA APRN) Course & Med Decision Making: Course & Med Decision Making Pertinent Labs and Imaging studies reviewed. (See chart for details) [] 80-year-old female presents with altered mental status. Family states she has been acting confused for 5 days. Patient has been in bed for the last 5 days with fatigue, lack of appetite, nausea and vomiting. Patient is alert and oriented x4. Patient has moments of confusion and forgetfulness.Patient continues to repeat herself during conversation. Patient denies any type of trauma. UA negative for infection. NS Bolus given to treat possible dehydration. BNP- 1297 CT head shows no acute findings. Chest x-ray is unremarkable. Patient will need to be admitted for altered mental status. Patient will need to be transferred to [place] for MRI to rule out possible stroke. I spoke with Dr. Garcia who will be accepting patient on med tele for AMS. Cultures, Lactic, T4,TSH ordered. Antibiotics started prior to transfer. Patient blood pressure is elevated. Patient given 20mg Labatelol to address HTN. Patient is appreatiative and agrees [facility]. (ORLIN ALICEA APRN) Course & Med Decision Making Did not see or evaluate patient. Did not discuss patient with ORTHOTIST/PROSTHETIST. Agree with ORTHOTIST/PROSTHETIST's work-up and disposition per note. (TEODORO MADDOX MD) Dragon Disclaimer: Dragon Disclaimer: This electronic medical record was generated, in whole or in part, using a voice recognition dictation system. (ORLIN ALICEA APRN) Departure Departure: Impression: Primary Impression: AMS (altered mental status) Qualified Codes: R41.82 - Altered mental status, unspecified Additional Impressions: Nausea & vomiting Qualified Codes: R11.2 - Nausea with vomiting, unspecified Weakness Disposition: 02 [facility]ORT TERM [facility]OSP[facility] Condition: STABLE Referrals: ROSANNA NUÑEZ (PCP) ORLIN ALICEA APRN Aug 19, 2021 20:39 TEODORO MADDOX MD Aug 19, 2021 23:32
[2021-08-19 21:02] LABS: BILIRUBIN,URINE NEG (NEG); CLARITY,URINE CLEAR; COLOR,URINE YELLOW; GLUCOSE,URINE NEG (NEG)
--- NOTE | 2021-08-19 21:02 | RAD ---
CT Head W/O Contrast: History: Reason: AMS, weakness / Spl. Instructions: / History: Comparison: none Axial images were obtained without contrast. There is marked diffuse atrophy. There is no mass effect, extraaxial fluid collections or hydrocepha phyllis. There is no focal loss of casper-white matter distinction to suggest acute ischemia, i.e. stroke. Impression: No acute findings. RS Compliance Statement: One or more of the following individualized dose reduction techniques were utilized for this examinat ion: 1. Automated exposure control 2. Adjustment of the mA and/or kV according to patient size 3. Use of iterative reconstruction technique Electronically signed by: Jero Lewis III, MD (08/19/2021 9:00 PM) [facility]
[2021-08-19 21:03] LABS: BACTERIA,URINE FEW /HPF (0-FEW); NITRITE,URINE NEG (NEG); SQUAMOUS EPITHELIAL CELL,UR FEW /LPF; UROBILINOGEN,URINE 0.2 mg/dL (0.2 mg/dL)
[2021-08-19] MEDS ORDERED: LABETALOL 100 MG/20 ML VIAL. IV ONE (22:08)
[2021-08-19] MEDS ORDERED: IV NORMAL SALINE 50ML 50 ML ONE ×2 (22:39→23:59)
[2021-08-19] MEDS ORDERED: cefTRIAXone SODIUM 1 GM VIAL ONE (22:39)
[2021-08-19] MEDS ORDERED: LABETALOL 20 MG/4 ML DISP.SYRIN. IVP ONE (23:00)
[2021-08-19] MEDS ORDERED: ONDANSETRON PF 4 MG/2 ML VIAL. IVP ONE (23:00)
[2021-08-19] MEDS ORDERED: PIPERACILLIN/TAZOBACTAM 3.375 GM in IV NORMAL SALINE 50ML 50 ML IV ONE (23:00)
[2021-08-19 23:32] VITALS: BP 175/88
[2021-08-19] MEDS ORDERED: METOCLOPRAMIDE HCL 10 MG/2 ML VIAL. ONE (23:58)
[2021-08-19] MEDS ORDERED: PIPERACILLIN/TAZOBACTAM 3.375 GM VIAL IV ONE (23:59)
--- NOTE | 2021-08-20 01:41 | EKG ---
[address] [address] Test Date: 2021-08-19 Test Time: 19:47:49 Pat Name: KARLA FORDE Department: Room: Gender: F Medical Clinic Manager: IFEOMA : 1940 Requested By: ORLIN ALICEA Order Number: [id number] Reading MD: Rocky Mccloud MD Measurements Intervals [place] Rate: 75 P: OK: QRS: -13 QRSD: 90 T: 16 QT: 314 QTc: 353 Interpretive Statements SR NON-SPECIFIC ST/T CHANGES Electronically Signed On 08-20-2021 8:19:52 DIRECTOR OF EXTENSION WORK by Rocky Mccloud MD
[2021-08-20 20:27] LABS: FREE T4 1.34 ng/dL (0.76-1.46); THYROID STIM HORMONE (TSH) 1.001 uIU/mL (0.358-3.740)
== END 2021-08-20 00:24 | disposition short-term general hospital (02) ==
LOC: ER 19:02
DX: R41.82 Altered mental status, unspecified (principal); R11.2 Nausea with vomiting, unspecified; R53.1 Weakness; K21.9 Gastro-esophageal reflux disease without esophagitis; E78.00 Pure hypercholesterolemia, unspecified; I10 Essential (primary) hypertension; E03.9 Hypothyroidism, unspecified; Z20.822 Contact with and (suspected) exposure to COVID-19; Z90.49 Acquired absence of other specified parts of digestive tract; Z90.710 Acquired absence of both cervix and uterus; Z88.1 Allergy status to other antibiotic agents; Z88.8 Allergy status to other drugs, medicaments and biological substances
CPT/HCPCS: 36415; 70450; 71045; 80048; 81001; 83605; 83735; 83880; 84439; 84443; 84484; 85025; 87040; 87426; 93005; 96365; 96375; 99285; C9803; J0696; J2405; J3490; U0003